=== PATIENT | male | born 1965 | race Caucasian/White ===

== ENCOUNTER 2024-08-28 21:55 | Inpatient (IN) | payer OTHER ==
[2024-08-28] MEDS ORDERED: Benzonatate 100 MG CAP PO PRN (22:31)
[2024-08-28] MEDS ORDERED: Albuterol 200 PUFF (6.7GM INHALER) INH PRN (22:33)
[2024-08-28] MEDS ORDERED: Albuterol 2.5 MG (3 mL) NEB NEB PRN (22:33)
[2024-08-28] MEDS ORDERED: Magnesium 2 GM/50 ML(in water) 2 GM in Premix 1 BAG IVPB SCH (22:45)
[2024-08-28] MEDS: guaiFENesin/DM ER PO SCH (22:46)
[2024-08-28 22:53] VITALS: BMI 38.5
[2024-08-29 00:06] LABS: Troponin I 0.015 ng/mL (< 0.028)
[2024-08-29] MEDS ORDERED: Ondansetron PF 4 MG/2 ML Vial IVP PRN (00:16)
[2024-08-29] MEDS ORDERED: Fluticasone/Umeclidin/Vilanter [Trelegy Ellipta 100-62.5-25] INH PRN (00:20)
[2024-08-29 02:04] LABS: Influenza A by NAA DETECTED (NotDetected); Influenza B by NAA Not Detected (NotDetected); SARS-CoV-2 NAA Rapid Test Not Detected (NotDetected)
[2024-08-29] MEDS: Acetaminophen 325 MG TAB PO PRN (02:28)
[2024-08-29] MEDS: SUMAtriptan Succinate 25 MG TAB PO PRN (02:31)
[2024-08-29] MEDS: Oseltamivir 75 MG CAP PO SCH ×2 (02:36→09:19)
[2024-08-29 02:52] LABS: Bacteria/HPF None Seen HPF (None Seen); Bilirubin Negative (Negative); Blood, Urine Negative (Negative); Clarity Clear (Clear); Glucose, Urine (Dipstick) Normal (Negative); Ketone, Urine Negative (Negative); Leukocyte Negative Leu/uL (Negative); Nitrite Negative (Negative); Protein, Urine (Dipstick) Negative (Neg-Trace); RBC/HPF 0-3 HPF (0-3); Specific Gravity, Urine 1.039 (1.002-1.036); Squamous Epithelial None Seen HPF (0-3); Urobilinogen Normal mg/dL (Less than 2); WBC/HPF 0-3 HPF (0-3); pH, Urine 6.5 (5.0-9.0)
[2024-08-29 05:01] LABS: #Basophils 0.04 10x3/uL (0.0-0.2); %Basophils 0.5 % (0.0-1.0); %Eosinophils 2.3 % (0.0-10.0); %Lymphocytes 13.7 % (21.0-51.0); %Monocytes 13.2 % (0.0-10.0); %Neutrophils 69.8 % (42.0-75.0); Hematocrit 42.6 % (42.0-52.0); Hemoglobin 14.7 g/dL (14.0-18.0); Mean Corpuscular HGB CONC 34.5 g/dL (32.0-36.0); Mean Corpuscular Hemoglobin 31.6 pg (27.0-31.0); Mean Corpuscular Volume 91.6 fL (78.0-98.0); Mean Platelet Volume 10.8 fL (7.4-10.4); Platelet Count 177 10x3/uL (130-400); RBC Distribution Width 13.2 % (11.5-14.5); Red Blood Cell (RBC) Count 4.65 mill/uL (4.70-6.10)
[2024-08-29 05:26] LABS: Troponin I Less than 0.010 ng/mL (< 0.028)
[2024-08-29 05:30] LABS: Anion Gap 12 mmol/L (10-20); BUN (Urea Nitrogen) 9 mg/dL (8.4-25.7); Calc. Creatinine Clearance 146 mL/min (70-130); Calcium 8.6 mg/dL (7.8-10.44); Carbon Dioxide 25 mmol/L (23-31); Chloride 105 mmol/L (98-107); Estimated GFR 92; Glucose 111 mg/dL (80-115); Potassium 3.8 mmol/L (3.5-5.1); Sodium 138 mmol/L (136-145)
[2024-08-29] MEDS: Methocarbamol 500 MG TAB PO SCH (09:19)
[2024-08-29] MEDS: guaiFENesin/DM ER PO SCH (09:19)
[2024-08-29] MEDS: Heparin 5,000 UNITS/ML VIAL SC SCH (09:19)
[2024-08-30 09:04] VITALS: BP 134/66; TEMP 98
== END 2024-08-30 09:44 | disposition home or self-care (01) | DRG 195 ==
LOC: OBS 21:55 → OBSVTOIN 08-29 14:09
PROVIDERS: ADMIT Internal Medicine; ATTEND Family Medicine
DX: J10.1 Influenza due to other identified influenza virus with other respiratory manifestations (principal); J45.909 Unspecified asthma, uncomplicated; G43.909 Migraine, unspecified, not intractable, without status migrainosus; R55 Syncope and collapse; R00.1 Bradycardia, unspecified; M19.90 Unspecified osteoarthritis, unspecified site; G47.33 Obstructive sleep apnea (adult) (pediatric); Z98.890 Other specified postprocedural states; E66.9 Obesity, unspecified; Z68.38 Body mass index [BMI] 38.0-38.9, adult; Z79.899 Other long term (current) drug therapy; Z91.010 Allergy to peanuts; Z79.01 Long term (current) use of anticoagulants
CPT/HCPCS: 36415; 70450; 71045; 71275; 80048; 80053; 81001; 83735; 84443; 84484; 85025; 93005; 93306; 93880; 96372; G0378; J1644; J3475